=== PATIENT | male | born 1965 | race African-American/Black ===

== ENCOUNTER 2018-05-14 13:09 | Emergency (ER) | payer SELFPAY ==
[2018-05-14 13:39] LABS: Basophils # (Auto) 0.1 K/mm3 (0.0-0.1); Basophils % (Auto) 0.8 % (0.0-1.8); Eosinophils # (Auto) 0.2 K/mm3 (0.0-0.4); Eosinophils % (Auto) 2.4 % (0.0-4.3); Hematocrit 35.9 % (35.5-45.6); Hemoglobin 12.3 gm/dl (11.8-15.2); Lymphocytes # (Auto) 1.8 K/mm3 (1.2-5.4); Lymphocytes % (Auto) 20.6 % (13.4-35.0); Mean Corpuscular HGB Conc 34 % (32-34); Mean Corpuscular Volume 96 fl (84-94); Monocytes # (Auto) 0.8 K/mm3 (0.0-0.8); Monocytes % (Auto) 8.8 % (0.0-7.3); Platelet Count 232 K/mm3 (140-440); Red Blood Count 3.74 M/mm3 (3.65-5.03)
--- NOTE | 2018-05-14 13:50 | Cat Scan Report ---
CT scan of head without IV contrast: Code Stroke History: AMS. Findings: Ventricles are normal in size and midline in location. No evidence of ischemia, hemorrhage or mass. No extra-axial fluid collection. Normal visualized sinuses and mastoid air cells. Impression: No acute intracranial abnormality. Dr. Mckeon was informed of the findings at 2:49 PM on 05/14/18. 98N .
[2018-05-14 13:54] LABS: INR 0.97 (0.87-1.13); Partial Thromboplastin Time 25.3 Sec. (24.2-36.6)
[2018-05-14 14:13] LABS: BUN/Creatinine Ratio 18; Blood Urea Nitrogen 14 mg/dL (9-20); Calcium 8.5 mg/dL (8.4-10.2); Hemolysis Index 20
[2018-05-14 14:15] LABS: Creatine Kinase MB 1.7 ng/mL (0.0-4.0)
[2018-05-14 14:28] LABS: Bacteria,Urine 1+ /HPF (Negative); Bilirubin,Urine NEG (Negative); Blood,Urine SM (Negative); Color,Urine Yellow (Yellow); Hyaline Casts,Urine 11 /LPF; Mucus,Urine FEW /HPF; Protein,Urine <15 mg/dL mg/dL (Negative); Sperm,Urine 1+ /HPF (NP); Urobilinogen,Urine < 2.0 mg/dL (<2.0)
[2018-05-14 14:36] LABS: Benzodiazepines Screen,Urine PRESUMPTIVE NEGATIVE; Cocaine Screen,Urine PRESUMPTIVE NEGATIVE; Methadone Screen,Urine PRESUMPTIVE NEGATIVE; Opiate Screen,Urine PRESUMPTIVE NEGATIVE
[2018-05-14 14:48] LABS: Amphetamine Screen,Urine PRESUMPTIVE POSITIVE; Cannabinoid Screen,Urine PRESUMPTIVE POSITIVE
--- NOTE | 2018-05-14 15:07 | XRay Report ---
Single view chest: History: Neural deficits. Findings: Cardiomegaly. Trachea is midline. Mild pulmonary venous congestion. No consolidation no pleural effusion. Impression: Cardiomegaly with mild pulmonary venous congestion.
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
[2018-05-14] MEDS ORDERED: BABY ASPIRIN PO ONE (16:06)
[2018-05-14] MEDS ORDERED: ZOFRAN IV PRN (16:10)
[2018-05-14] MEDS ORDERED: TYLENOL PO PRN (16:10)
[2018-05-14] MEDS ORDERED: SODIUM CHLORIDE FLUSH SYRINGE 10 ML IV PRN (16:10)
[2018-05-14 16:15] VITALS: BP 130/95
[2018-05-14] MEDS ORDERED: SODIUM CHLORIDE FLUSH SYRINGE 10 ML IV SCH (22:00)
[2018-05-14] MEDS ORDERED: AMIDATE IV ONE (22:51)
[2018-05-14] MEDS ORDERED: QUELICIN ONE (22:51)
== END 2018-05-14 17:01 | disposition left against medical advice (07) ==
LOC: ED 13:09
DX: J96.00 Acute respiratory failure, unspecified whether with hypoxia or hypercapnia (principal); G93.40 Encephalopathy, unspecified; E87.2 Acidosis; I82.409 Acute embolism and thrombosis of unspecified deep veins of unspecified lower extremity
CPT/HCPCS: 31500; 36415; 70450; 71045; 80048; 80307; 81001; 82140; 82550; 82553; 83735; 83880; 84484; 85025; 85610; 85670; 85730; 93005; 93010; 94002; 99285; J0330

== ENCOUNTER 2018-09-09 10:52 | Emergency (ER) | payer OTHER ==
[2018-09-09] MEDS ORDERED: DILAUDID IV ONE (11:08)
[2018-09-09] MEDS ORDERED: TORADOL IV ONE (11:08)
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
[2018-09-09 11:35] LABS: Basophils % (Auto) 0.5 % (0.0-1.8); Eosinophils % (Auto) 0.2 % (0.0-4.3); Hemoglobin 15.7 gm/dl (11.8-15.2); Lymphocytes # (Auto) 2.2 K/mm3 (1.2-5.4); Lymphocytes % (Auto) 25.6 % (13.4-35.0); Mean Corpuscular HGB Conc 36 % (32-34); Mean Corpuscular Volume 95 fl (84-94); Monocytes # (Auto) 0.8 K/mm3 (0.0-0.8); Monocytes % (Auto) 9.2 % (0.0-7.3); Platelet Count 288 K/mm3 (140-440); Red Blood Count 4.64 M/mm3 (3.65-5.03)
--- NOTE | 2018-09-09 11:41 | XRay Report ---
2 views of the right hip INDICATION / CLINICAL INFORMATION: Right hip pain. COMPARISON: None available. FINDINGS: BONES/JOINT(S): No acute fracture or subluxation. Trace bilateral hip DJD with mild superior joint sp geovanni loss and marginal osteophyte formation. Mild degenerative changes noted in the lower lumbar spine . No aggressive appearing bone lesions identified. SOFT TISSUES: No significant abnormality. ADDITIONAL FINDINGS: None. Signer Name: Sammy Costello MD Signed: 09/09/2018 10:37 AM Workstation Name: [id number]
[2018-09-09 11:51] LABS: BUN/Creatinine Ratio 17; Blood Urea Nitrogen 17 mg/dL (9-20); Calcium 9.3 mg/dL (8.4-10.2); Hemolysis Index 61
[2018-09-09] MEDS ORDERED: FLEXERIL PO ONE (12:06)
[2018-09-09 12:44] VITALS: BP 151/99
== END 2018-09-09 12:43 | disposition home or self-care (01) ==
LOC: ED 10:52
DX: M51.36 Other intervertebral disc degeneration, lumbar region (principal); G89.29 Other chronic pain; M25.551 Pain in right hip; I10 Essential (primary) hypertension; F12.10 Cannabis abuse, uncomplicated; Z87.891 Personal history of nicotine dependence
CPT/HCPCS: 36415; 73502; 80048; 85025; J1170; J1885; 96374; 96375